=== PATIENT | female | born 1955 ===

== ENCOUNTER 2019-08-25 20:01 | Emergency (ER) | payer OTHER ==
[~2019-08-25] VITALS: Ht 157.5 cm; Wt 54.4 kg
[~2019-08-25 20:01] MED LIST: ALLEGRA ALLERG180 MG PO; HYDRODIURIL12.5 MG; VITAMIN D5000 UNIT
== END 2019-08-25 23:57 | disposition home or self-care (01) ==
LOC: ER 20:01
DX: E86.0 Dehydration (principal); R00.2 Palpitations; R42 Dizziness and giddiness; F41.8 Other specified anxiety disorders

== ENCOUNTER 2021-12-11 10:24 | Outpatient (CLI) | payer OTHER | END 2021-12-11 10:28 | disposition home or self-care (01) | LOC: RAD 10:24 | PROVIDERS: ATTEND Internal Medicine Pulmonary Disease | DX: I10 Essential (primary) hypertension (principal); Z01.811 Encounter for preprocedural respiratory examination ==

== ENCOUNTER 2023-07-20 19:46 | Emergency (ER) | payer OTHER ==
[~2023-07-20] VITALS: Ht 157.5 cm; Wt 49.0 kg
[2023-07-20] MEDS ORDERED: ATENOLOL25 MG PO (20:03)
== END 2023-07-20 22:24 ==
LOC: ER 19:46
DX: T78.40XA Allergy, unspecified, initial encounter (principal); F41.8 Other specified anxiety disorders; Z88.2 Allergy status to sulfonamides; I10 Essential (primary) hypertension; M19.90 Unspecified osteoarthritis, unspecified site; J31.0 Chronic rhinitis
CPT/HCPCS: 96365; 99284; J2930; J3490; J7042

== ENCOUNTER 2025-06-20 20:07 | Emergency (ER) | payer OTHER ==
[~2025-06-20] VITALS: Ht 160 cm; Wt 59.0 kg
[~2025-06-20 20:07] MED LIST changes: +ATENOLOL25 MG PO
== END 2025-06-20 22:30 | disposition home or self-care (01) ==
LOC: ER 20:07
DX: F41.9 Anxiety disorder, unspecified (principal); R53.81 Other malaise; Z88.2 Allergy status to sulfonamides